=== PATIENT | male | born 1955 | race Caucasian/White ===

== ENCOUNTER 2016-11-06 00:46 | Day surgery (SDC) | payer OTHER ==
[2016-11-06] VITALS (9 sets, daily range): BP systolic 93–126; BP diastolic 58–77; PULSE 57–86; RESP 14–18; O2SAT 96–100
[~2016-11-06] VITALS: Ht 177.8 cm; Wt 75.0 kg
[~2016-11-06 00:46] MED LIST: ALBU6.7H INH; AMIO200T PO; DIGO250T72 PO; FUR20 PO; LISI-571 PO; LORA10CA PO; SIMV20TA4 PO; TAMS0.4C98 PO; WARF2.5T82 PO
--- NOTE | 2016-11-06 08:00 | NUR ---
aDMIT NOTE: Patient ambulates into department. His questions are answered. IV started and labs are drawn. PT/INR fingerstick done. Consent signed in physician's office. He is prepped and ready for cardioversion.
[2016-11-06] MEDS ORDERED: WARF2.5T82 PO (08:26)
[2016-11-06] MEDS ORDERED: Methohexital 10 mg/mL 50 mL Inj ONE (08:31)
[2016-11-06] MEDS ORDERED: 0.9% Sodium Chloride 1,000 ML ONE (08:32)
[2016-11-06] MEDS ORDERED: Atropine 1 mg/10 mL (Code) Syringe ONE (08:33)
--- NOTE | 2016-11-06 09:45 | PROCED ---
[address] [address] PROCEDURE NOTE PATIENT: XAVI CEBALLOS : 1955 MR#: [id number] ADMIT: 11/06/2016 JOB ID: [id number] DATE OF SERVICE: 11/06/2016 PREOPERATIVE DIAGNOSIS(ES): Atrial fibrillation. POSTOPERATIVE DIAGNOSIS(ES): Sinus rhythm. PROCEDURE PERFORMED: Direct current cardioversion. SURGEON: Long Cunha MD, electrophysiology attending. SEDATION: Versed 1 mg, and 50 mg of Brevital were utilized for appropriate level of sedation. INDICATION: The patient is a pleasant 60-year-old man with previous atrial fibrillation ablation who has had recurrence. After discussion of risks and benefits of cardioversion and confirmation of adequate anticoagulation, he opted to proceed. PROCEDURAL DESCRIPTION: Following informed signed consent, the patient was taken to the procedure suite in a fasting state where defibrillator patches were placed in the anterior and posterior positions. After adequate sedation, a 200 joule biphasic synchronized shock was used to convert him to a sinus rhythm. He reverted back to atrial fibrillation and was cardioverted yet again with a 200 joule synchronized shock. He will be allowed to recover and discharged home for close followup. COMPLICATIONS: None. BLOOD LOSS: Not applicable. IMPRESSION: Successful direct current cardioversion. PLAN: 1. Recovery and discharge from the [facility]. 2. Follow up with myself or Campos Helton PA-C in clinic in 3-4 weeks. ATTENDING STATEMENT: Long Cunha MD, electrophysiology attending, was present for and performed all aspects of this procedure.
--- NOTE | 2016-11-06 10:07 | NUR ---
Discharge note: Patient remains in NSR post cardioversion. He is OOB and denies lightheadedness. Taking po liquids. Reviewed DC instructions with patient. Hep lock DC'd. He ambulates out of department. Home with friend.
--- NOTE | 2016-11-06 10:32 | NUR ---
Assisted with cardioversion without any respiratory complications
== END 2016-11-06 23:59 | disposition home or self-care (01) ==
LOC: SOUO 00:46
PROVIDERS: ATTEND Internal Medicine Cardiovascular Disease
DX: I48.1 Persistent atrial fibrillation (principal); Z79.01 Long term (current) use of anticoagulants; I10 Essential (primary) hypertension; J44.9 Chronic obstructive pulmonary disease, unspecified; Z79.899 Other long term (current) drug therapy
CPT/HCPCS: 92960; 93005; 94799; J2250; J7030